=== PATIENT | female | born 1985 | race African-American/Black ===

== ENCOUNTER 2018-04-04 21:21 | Emergency (ER) | payer MEDICAID ==
[~2018-04-04] VITALS: Ht 160 cm; Wt 53.8 kg
[~2018-04-04 21:21] MED LIST: PRENATAL VITS
[2018-04-04 21:36] VITALS: BP 117/87
[2018-04-05] MEDS ORDERED: TRANEXAMIC ACID 1,000 MG/10 ML IV ONE (00:15)
[2018-04-05] MEDS ORDERED: ONDANSETRON 4MG ODT PO ONE (00:15)
== END 2018-04-05 02:27 | disposition home or self-care (01) ==
LOC: ER 21:47
DX: T81.89XA Other complications of procedures, not elsewhere classified, initial encounter (principal); B00.89 Other herpesviral infection; F12.10 Cannabis abuse, uncomplicated; Z98.890 Other specified postprocedural states
CPT/HCPCS: 93005; 96374; 99283; Q0162